=== PATIENT | male | born 1930 | race Caucasian/White ===

== ENCOUNTER 2017-06-21 17:32 | Emergency (ER) | payer MEDICARE, BC ==
[2015-12-28 09:17] VITALS: BMI 22.8
[~2017-06-21 17:32] MED LIST: BAYER CHEWABLE81 MG PO; PACERONE100 MG PO; SYNTHROID100 MCG PO; XARELTO15 MG PO; XARELTO20 MG PO; ZYLOPRIM300 MG PO
== END 2017-06-21 20:33 | disposition home or self-care (01) ==
LOC: D.ER 17:32
DX: S40.212A Abrasion of left shoulder, initial encounter (principal); W01.0XXA Fall on same level from slipping, tripping and stumbling without subsequent striking against object, initial encounter; Y93.89 Activity, other specified; Y92.019 Unspecified place in single-family (private) house as the place of occurrence of the external cause; S41.112A Laceration without foreign body of left upper arm, initial encounter; I25.10 Atherosclerotic heart disease of native coronary artery without angina pectoris